=== PATIENT | female | born 1995 | race Caucasian/White ===

== ENCOUNTER 2018-12-21 07:59 | Outpatient (CLI) | payer OTHER ==
--- NOTE | 2018-12-21 11:48 | Ultrasound Report ---
ULTRASOUND ABDOMEN LIMITED INDICATION: Right upper quadrant pain. COMPARISON: None similar at this institution. FINDINGS: Right upper quadrant sonography suggests diffuse hepatic coarsening, slightly echogenic with right hepatic lobe approximately 18 cm in midclavicular length. Grossly preserved contours. No definite focal suspicious lesion or biliary dilatation. No gallstones or pericholecystic fluid. Gallbladder wall thickness is 2.3 mm. Common bile duct is 3.7 mm. Imaged pancreas, nonaneurysmal abdominal aorta and IVC within normal limits. Unremarkable right kidney estimated at 11.6 x 5.3 x 5.7 cm with cortical thickness of 1.6 cm. CONCLUSION: Coarse, questionably fatty liver without acute right upper quadrant sonographic abnormality, as described. Please correlate. Thank you for the opportunity to participate in this patient's care.
== END 2018-12-21 08:00 | disposition home or self-care (01) ==
LOC: US 07:59
PROVIDERS: ATTEND Family Medicine
DX: K82.8 Other specified diseases of gallbladder (principal)
CPT/HCPCS: 76705